=== PATIENT | female | born 2005 | race Caucasian/White ===

== ENCOUNTER 2024-12-12 16:43 | Emergency (ER) | payer MEDICAID, SELFPAY ==
[2024-12-12 16:45] VITALS: BP 106/66
[2024-12-12 17:35] LABS: COVID-19 Antigen Negative (Negative)
[2024-12-12 17:38] LABS: ALT (SGPT) 53 U/L (0-35); AST (SGOT) 71 U/L (14-36); Albumin 3.4 g/dl (3.5-5.0); Alkaline Phosphatase 112 U/L (38-126); Blood Urea Nitrogen 13 mg/dl (7-17); Calcium 9.1 mg/dl (8.4-10.2); Carbon Dioxide 24 mmol/L (22-30); Chloride 107 mmol/L (98-107); Glucose 90 mg/dl (70-99); Potassium 4.6 mmol/L (3.5-5.1); Sodium 142 mmol/L (135-145); Total Bilirubin 0.8 mg/dl (0.2-1.3); Total Protein 6.7 g/dl (6.3-8.2); eGFR > 60.00
[2024-12-12 17:45] LABS: Troponin I 0.023 ng/ml
[2024-12-12 18:21] LABS: % Basophils 0.4 % (0-2); % Eosinophils 0.2 % (0-6); % Immature Granulocytes 2.2 % (0-0.5); % Lymphocytes 16.5 % (20.5-51.1); % Neutrophils 65.7 % (42.2-75.2); Absolute Immature Granulocytes 0.2 10^3/uL (0-0.05); Absolute Lymphocytes 1.6 10^3/uL (1.2-3.4); Absolute Monocytes 1.4 10^3/uL (0.1-0.6); Absolute Neutrophils 6.2 10^3/uL (1.4-6.5); Hematocrit 36.5 % (37.0-47.0); Hemoglobin 13.4 g/dL (12.0-16.0); Mean Corp Hgb Conc. 36.7 g/dL (33.0-37.0); Mean Corpuscular Hgb 31.1 pg (27.0-31.0); Mean Corpuscular Volume 84.7 fL (81.0-99.0); Mean Platelet Volume 10.6 fL (7.4-10.4); Nucleated Red Blood Cells % 0.3 %; Platelet Count 383 10^3/uL (130-400); Red Blood Cell Count 4.31 10^6/uL (4.20-5.40); White Blood Cell Count 9.4 10^3/uL (4.8-10.8)
[2024-12-12 18:39] LABS: HCG, Serum Qualitative Screen Negative; Monotest Negative (Negative)
[2024-12-12] MEDS: DUONEB 3 ML INH (18:43)
[2024-12-12] MEDS: NSS 1000 IV (18:57)
[2024-12-12] MEDS: TORADOL 15 MG IV (18:58)
[2024-12-12] MEDS: DECADRON 10 MG IV (18:58)
--- NOTE | 2024-12-12 19:00 | ED.GENMED ---
History of Present Illness
General
Chief Complaint: Weakness
Source: patient and animal care taker (Caregiver from [facility])
Exam Limitations: none
Time Seen by Provider: 12/12/24 17:54
Nursing documentation reviewed up to this point in time: agreed with
History of Present Illness
History of Present Illness:
Patient is a 19-year-old female with history asthma presenting to the emergency department for evaluation of cough, congestion, and weakness. Patient states she has felt unwell for the past few weeks. She was treated with a course of amoxicillin
for possible strep which she completed today. However�patient's weakness and cough has persisted. She also endorses sore throat and mild midsternal chest discomfort only with coughing. No hemoptysis. No exertional or pleuritic pain. No recent
fevers. Patient denies any abdominal pain or vomiting.
Patient does have a history of asthma and uses inhalers which do improve symptoms.
Past History
Past History
ED Past Medical History: Asthma, GERD, Seizures, Psychiatric (ADHD, Anxiety, Depression) and Other (Psoriasis, nephritis)
ED Past Surgical History: Urological (Kidney surgery)
Social History
Tobacco: Non-smoker
Alcohol: None
Personal: Single
Living: other ([facility])
Review of Systems
Review of Systems
Allergies reviewed?: Yes
All Other Systems: ROS reviewed and negative except as documented in HPI and ROS
Phy Exam
Physical Exam
Physical Exam:
Vitals: Tachycardic on arrival, otherwise stable vital signs. Afebrile
General: Patient is in no apparent respiratory distress.
Skin: Warm and dry, no rashes or lesions
Head: Normocephalic, atraumatic
Eyes: Sclera nonicteric. EOMs intact. No nystagmus.
Throat: Mild pharyngeal erythema. No tonsillar edema or exudates. Uvula midline. No MARKETING ENGINEER. Protecting airway
Neck: Normal ROM, no cervical spine tenderness, no meningismus
Cardiac: Tachycardic, normal rhythm, no murmurs.
Pulm: Coarse lung sounds with frequent cough. No tachypnea or hypoxia. Normal respiratory effort.
Abdomen: Abdomen soft and nontender. No palpable organomegaly.
Extremities: No evidence of cyanosis or edema. Palpable distal pulses bilaterally
Neuro: AAOx3. Grossly intact.
Psychiatric: Normal affect.
Course
Orders/Labs/Results
Orders:
Orders
12/12/24 16:48
Electrocardiogram (*1) Urgent
Reason for Study: Shortness of Breath
12/12/24 16:49
EKG- Treatment ONCE
12/12/24 17:04
COVID-19 Antigen Urgent
Source: Nasal Swab
Complete Blood Count/With Diff Urgent
Comprehensive Metabolic Panel Urgent
HCG, Serum Qualitative Screen Urgent
Comment: ADD ON
Monotest Urgent
Comment: ADD ON
Troponin I Urgent
Influenza A+B Rapid Molecular Urgent
LEE Source: Nasal Swab
Specimen Description:
12/12/24 18:05
Add On- LAB Urgent
Tests Added?: monospot, hcg qual
0.9% Sodium Chloride 1000 ml [Nss] 1,000 ml IV BOLUS
Dexamethasone Sod Phosphate [Decadron] 10 mg IV NOW STA
Ipratropium/Albuterol Sulfate [Duoneb] 3 ml INH R NOW STA
Ketorolac [Toradol] 15 mg IV NOW STA
CR Chest - 2 Views Urgent
Comment:
Reason For Exam: cough, chest pain
12/12/24 21:08
Amoxicillin 875 mg/Clav 125 mg [Augmentin 875 mg/125 mg] 1 tablet PO NOW STA
Doxycycline [Vibramycin] 100 mg PO NOW STA
Abnormal Lab Results
12/12/24
17:04
Hct 36.5 L %
(37.0-47.0)
MCH 31.1 H pg
(27.0-31.0)
MPV 10.6 H fL
(7.4-10.4)
Abs Immat Gran (auto) 0.2 H 10^3/uL
(0-0.05)
Absolute Monos (auto) 1.4 H 10^3/uL
(0.1-0.6)
Immature Gran % 2.2 H %
(0-0.5)
Lymphocytes % 16.5 L %
(20.5-51.1)
Monocytes % 15.0 H %
(1.7-9.3)
Creatinine 0.5 L mg/dL
(0.6-1.0)
AST 71 H U/L
(14-36)
ALT 53 H U/L
(0-35)
Albumin 3.4 L g/dl
(3.5-5.0)
12/12/24 17:04
12/12/24 17:04
Vital Signs
Initial and Last Documented VS:
Initial Vital Signs
Temp Pulse Resp BP Pulse Ox
98.6 F 118 18 106/66 92
12/12/24 16:45 12/12/24 16:45 12/12/24 16:45 12/12/24 16:45 12/12/24 16:45
Last Documented Vital Signs
Temp Pulse Resp BP Pulse Ox
98.6 F 85 18 101/68 97
12/12/24 16:45 12/12/24 20:55 12/12/24 16:45 12/12/24 20:55 12/12/24 20:55
MDM/Problems Addressed
Differential Diagnosis Includes:
Not limited to: Viral illness, bronchitis, pneumonia, asthma exacerbation, acute dehydration, etc.
MDM/Problems Addressed:
19-year-old female presenting with persistent cough, congestion, fatigue after recent URI/possible strep infection. No shortness of breath or exertional chest pain. Patient tachycardic on arrival although afebrile. Physical exam as above.
Patient appears nontoxic. She is tachycardic although with normal heart sounds. She is not hypoxic or tachypneic and in no apparent respiratory distress. She does have some coarse lung sounds bilaterally with frequent cough. No lower extremity
edema or pain. Differential broad although given recent infection and worsening cough and fatigue -concern for developing pneumonia. Other considerations would be possible underlying viral illness or bronchitis. Will check labs, chest x-ray,
viral studies will give DuoNeb, IV Decadron, Toradol, and IV fluids. Will closely monitor and reassess.
Update: Labs reviewed. No leukocytosis. Chemistry with mild elevation in LFTs which appears around her baseline. Viral studies negative, including mono. Chest x-ray does show a left lobe pneumonia. While patient did initially endorse very mild
chest pain she states it was only with coughing. Pneumonia may also be contributing to this discomfort. Do not suspect acute cardiac process. Heart rate has normalized following IV fluids and patient remains in no apparent respiratory distress,
with O2 saturations 98-100. Feel patient stable for discharge home on oral antibiotics. Will start Augmentin and doxycycline. Patient has albuterol inhaler to use at home as needed. Did discuss with nurse at [facility] who is aware and
comfortable with plan. Close return precautions discussed. Advise repeat x-ray in a few weeks to ensure resolving.
Chronic conditions affecting care:
Asthma
Acute Exacerbation and/or Progression of Chronic Illness:
N/A
*Radiology
Radiology exam reviewed: preliminary read by ED provider (Chest x-ray reviewed by nm-opacity in left lower lobe) and radiology read reviewed
*Pulse Oximetry
Patient hypoxic: no
*EKG
Interpreted by ED Provider?: Yes
EKG Intrepretation Date: 12/12/24
Interpretation: normal
Comparison EKG: no comparison EKG present
Heart Rate: 98
Rate: normal
Rhythm: sinus
[place]: normal axis
Interval: normal QT interval
QRS Pattern: normal QRS
Ischemia: no ischemia
*Licensed Plumber Interpretation
Rate: normal
Interpretation: normal
Heart Rate: 82
Rhythm: sinus
*Critical Care Note
Total Time (30-74mins, 75-104mins- exclusive of procedures): Not Applicable
ED Attending Note
-
Portions of this chart may have been created with voice recognition software.� Occasional wrong word or��sound alike� substitutions may have occurred due to the inherent limitations of voice recognition software.
Discharge Plan
Departure
Patient Disposition: Home (Routine Discharge)
Date of Disposition: 12/12/24
Time of Disposition: 21:04
Patient with high blood pressure during this ER visit?: No
Condition: Good
Covid-19: Negative COVID-19
Discharge Problem:
Community acquired pneumonia
Instructions: Pneumonia in adults - Discharge instructions
Prescriptions:
New
doxycycline hyclate 100 mg capsule
100 mg PO BID 5 Days Qty: 10 0RF
amoxicillin-pot clavulanate 875-125 mg tablet
1 tab PO BID 5 Days Qty: 10 0RF
No Action
acetaminophen 325 MG tablet
650 mg PO Q6HPRN PRN (Reason: MILD PAIN)
ketoconazole 120 ML shampoo
1 applic TP MOWEFR
quetiapine [Seroquel] 300 MG tablet
300 mg PO BID
diphenhydramine HCl [Banophen] 50 MG capsule
50 mg PO HSPRN PRN (Reason: INSOMNIA)
polyethylene glycol 3350 17 GRAMS powder in packet
17 grams PO BID
hydroxyzine pamoate 50 MG capsule
50 mg PO QID
melatonin 3 MG tablet
3 mg PO HS
divalproex 500 MG tablet,delayed release (DR/EC)
500 mg PO BID
clonidine HCl 0.2 MG tablet
0.2 mg PO TID
famotidine 20 MG tablet
20 mg PO BID
calcium carbonate [Antacid (calcium carbonate)] 1 TABLET tablet,chewable
1,000 mg PO Q8HPRN PRN (Reason: GERD)
docusate sodium 100 MG capsule
200 mg PO BID
bisacodyl 5 MG tablet,delayed release (DR/EC)
5 mg PO DAILYPRN PRN (Reason: CONSTIPATION)
albuterol sulfate 1 PUFF HFA aerosol inhaler
1 puff inhalation R Q6HPRN PRN (Reason: SOB)
fluoxetine 20 MG capsule
20 mg PO DAILY
prazosin [Minipress] 2 MG capsule
2 mg PO HS
atomoxetine 100 MG capsule
100 mg PO DAILY
cholecalciferol (vitamin D3) 1,000 UNITS tablet
2,000 units PO DAILY
multivitamin with folic acid [Tab-A-Art] 1 TABLET tablet
1 tab PO DAILY
Petrolatum,White [White Petrolatum] 5 GM Oint.Pack
1 applic TP BID
Cortisporin-TC 3.3-3-10-0.5 mg/mL drops,suspension
4 drp otic (ear) TID 5 Days Qty: 10 0RF
Referrals:
NONE,* [Family Provider] -
Interventions
Interventions:
*Risk Screen - Suicide Last Done: 12/12/24 16:45
*General Assessment Last Done: 12/12/24 16:45
*Neglect/Abuse Screening Last Done: 12/12/24 16:45
*ED- Fall Risk Assessment Last Done: 12/12/24 21:22
*ED COVID-19 Vaccine History Last Done: 12/12/24 16:45
*Nursing Disposition Last Done: 12/12/24 21:22
ED- Cardiac Assessment Last Done: 12/12/24 19:37
ED- Pulmonary Assessment Last Done: 12/12/24 19:37
Discharge Date and Time
Discharge Date/Time: 12/12/24 21:51
Print Language: CHINESE
[2024-12-12 19:02] VITALS: BP 107/64
[2024-12-12 19:39] VITALS: BP 120/66
[2024-12-12 20:55] VITALS: BP 101/68
[2024-12-12] MEDS: AUGMENTIN 875 MG/125 MG 1 TABLET PO (21:18)
[2024-12-12] MEDS: VIBRAMYCIN 100 MG PO (21:18)
== END 2024-12-12 21:51 | disposition home or self-care (01) ==
LOC: EMR 16:43
PROVIDERS: EMERGENCY PHYSICIAN Student in an Organized Health Care Education/Training Program
DX: J18.9 Pneumonia, unspecified organism (principal); J45.909 Unspecified asthma, uncomplicated
CPT/HCPCS: 94640; 96374; 96375; 96361; 99285; 71046; 80053; 84484; 84703; 85025; 86308; 87502; 87811; 93005

== ENCOUNTER 2025-05-03 10:37 | Emergency (ER) | payer MEDICAID, SELFPAY ==
[2025-05-03 10:37] VITALS: BMI 26.9
[2025-05-03 10:44] VITALS: BP 116/76
[2025-05-03 11:02] VITALS: BP 116/76
--- NOTE | 2025-05-03 13:23 | ED.GENMED ---
History of Present Illness
General
Chief Complaint: Skin Problem
Source: patient
Exam Limitations: none
Time Seen by Provider: 05/03/25 12:15
History of Present Illness
History of Present Illness:
19-year-old female from [facility] presents with redness to the right second toe that has been there and persistent over the past week. It started as a blister from wearing shoes. Became more red and then she stubbed her toe.
She notes pain to the area. She was supposed to be started on Keflex 3 days ago however she has been refusing many of her doses. No fevers. She is nondiabetic. Currently accompanied by staff from [place] [facility].
Past History
Past History
ED Past Medical History: Asthma, GERD, Seizures, Psychiatric (ADHD, Anxiety, Depression) and Other (Psoriasis, nephritis)
ED Past Surgical History: Urological (Kidney surgery)
Social History
Tobacco: Non-smoker
Alcohol: None
Personal: Single
Living: other ([facility])
Phy Exam
Physical Exam
Physical Exam:
General: Well-appearing female no acute respiratory distress
Skin: Subtle erythema noted dorsal aspect right second toe without fluctuance or induration. No lymphangitic streaking. This is tender to the touch there is no deformity to the toe
Vascular: Brisk capillary refill second toe
Course
Orders/Labs/Results
Orders:
Orders
05/03/25 12:27
CR Foot - Right Min 3 Views Urgent
Comment:
Reason For Exam: pain to second toe
Vital Signs
Initial and Last Documented VS:
Initial Vital Signs
Temp Pulse Resp BP Pulse Ox
98.2 F 117 20 116/76 99
05/03/25 10:44 05/03/25 10:44 05/03/25 10:44 05/03/25 10:44 05/03/25 10:44
Last Documented Vital Signs
Temp Pulse Resp BP Pulse Ox
98.3 F 117 18 116/76 98
05/03/25 11:02 05/03/25 11:02 05/03/25 13:07 05/03/25 11:02 05/03/25 11:02
MDM/Problems Addressed
Differential Diagnosis Includes:
Right toe erythema. Consider cellulitis. No sign of abscess. There was an injury concern for possible underlying fracture.
X-rays were taken which were negative for acute fracture. I suspect mild cellulitis versus inflammatory response to the blister. I advise she continue Keflex and warm compresses. No indication for admission. Stable for discharge
*Pulse Oximetry
SaO2: 98
Oxygen Mode of Delivery: Room air
Patient hypoxic: no
*Critical Care Note
Total Time (30-74mins, 75-104mins- exclusive of procedures): Not Applicable
ED Attending Note
-
Portions of this chart may have been created with voice recognition software.� Occasional wrong word or��sound alike� substitutions may have occurred due to the inherent limitations of voice recognition software.
Discharge Plan
Departure
Patient Disposition: Home (Routine Discharge)
Date of Disposition: 05/03/25
Time of Disposition: 13:25
Patient with high blood pressure during this ER visit?: No
Discharge Problem:
Cellulitis
Instructions: Cellulitis (Skin Infection), Adult (DC)
Prescriptions:
No Action
acetaminophen 325 MG tablet
650 mg PO Q6HPRN PRN (Reason: MILD PAIN)
ketoconazole 120 ML shampoo
1 applic TP MOWEFR
quetiapine [Seroquel] 300 MG tablet
300 mg PO BID
diphenhydramine HCl [Banophen] 50 MG capsule
50 mg PO HSPRN PRN (Reason: INSOMNIA)
polyethylene glycol 3350 17 GRAMS powder in packet
17 grams PO BID
hydroxyzine pamoate 50 MG capsule
50 mg PO QID
melatonin 3 MG tablet
3 mg PO HS
divalproex 500 MG tablet,delayed release (DR/EC)
500 mg PO BID
clonidine HCl 0.2 MG tablet
0.2 mg PO TID
famotidine 20 MG tablet
20 mg PO BID
calcium carbonate [Antacid (calcium carbonate)] 1 TABLET tablet,chewable
1,000 mg PO Q8HPRN PRN (Reason: GERD)
docusate sodium 100 MG capsule
200 mg PO BID
bisacodyl 5 MG tablet,delayed release (DR/EC)
5 mg PO DAILYPRN PRN (Reason: CONSTIPATION)
albuterol sulfate 1 PUFF HFA aerosol inhaler
1 puff inhalation R Q6HPRN PRN (Reason: SOB)
fluoxetine 20 MG capsule
20 mg PO DAILY
prazosin [Minipress] 2 MG capsule
2 mg PO HS
atomoxetine 100 MG capsule
100 mg PO DAILY
cholecalciferol (vitamin D3) 1,000 UNITS tablet
2,000 units PO DAILY
multivitamin with folic acid [Tab-A-Art] 1 TABLET tablet
1 tab PO DAILY
Petrolatum,White [White Petrolatum] 5 GM Oint.Pack
1 applic TP BID
Cortisporin-TC 3.3-3-10-0.5 mg/mL drops,suspension
4 drp otic (ear) TID 5 Days Qty: 10 0RF
doxycycline hyclate 100 mg capsule
100 mg PO BID 5 Days Qty: 10 0RF
amoxicillin-pot clavulanate 875-125 mg tablet
1 tab PO BID 5 Days Qty: 10 0RF
Referrals:
UNKNOWN - PT DOES,NOT KNOW [Family Provider]
Activity Restrictions/Additional Instructions:
You must take your antibiotics as prescribed. Apply warm compresses to the area. Return if worse otherwise
Interventions
Interventions:
*Risk Screen - Suicide Last Done: 05/03/25 11:02
*Neglect/Abuse Screening Last Done: 05/03/25 11:02
ED-Skin Assessment Last Done: 05/03/25 13:07
Discharge Date and Time
Print Language: [id number]
== END 2025-05-03 13:39 | disposition home or self-care (01) ==
LOC: EMR 10:37
PROVIDERS: EMERGENCY PHYSICIAN Emergency Medicine
DX: L03.031 Cellulitis of right toe (principal); J45.909 Unspecified asthma, uncomplicated; K21.9 Gastro-esophageal reflux disease without esophagitis; F90.9 Attention-deficit hyperactivity disorder, unspecified type; F41.9 Anxiety disorder, unspecified; F32.A Depression, unspecified; L40.9 Psoriasis, unspecified; T36.1X6A Underdosing of cephalosporins and other beta-lactam antibiotics, initial encounter; Z91.128 Patient's intentional underdosing of medication regimen for other reason
CPT/HCPCS: 99283; 73630